=== PATIENT | female | born 1990 | race Caucasian/White ===

== ENCOUNTER 2016-05-01 17:17 | Inpatient (IN) | payer OTHER ==
[~2016-05-01] VITALS: Ht 160 cm; Wt 50.5 kg
[2016-05-01] MEDS ORDERED: ONDANSETRON 4 MG INJ IV STA ×2 (17:21→19:53)
[2016-05-01] MEDS ORDERED: morphine 4 MG/ML VIAL IV STA ×2 (17:21→19:53)
[2016-05-01] MEDS ORDERED: SOD CHLORIDE 0.9% 1,000 ML IV STA ×2 (17:21→19:53)
[2016-05-01 17:48] LABS: ADD UMIC YES; URINE BILIRUBIN (Dip) NEGATIVE (NEGATIVE); URINE BLOOD (Dip) TRACE (NEGATIVE); URINE COLOR LT. YELLOW (YELLOW); URINE GLUCOSE (Dip) NEGATIVE (NEGATIVE); URINE KETONES (Dip) NEGATIVE (NEGATIVE); URINE LEUKOCYTE ESTERASE (Dip) TRACE (NEGATIVE); URINE NITRITE (Dip) NEGATIVE (NEGATIVE); URINE TOTAL PROTEIN (Dip) NEGATIVE (NEGATIVE); URINE UROBILINOGEN (Dip) 0.2 E.U./dL (0.1-1.0)
[2016-05-01 18:02] LABS: BASOPHIL # 0.1 10^3/ul (0.0-0.1); BASOPHILS % 0.4 % (0.0-2.0); EOSINOPHILS % 0.4 % (0.0-7.0); HEMATOCRIT 37.9 % (37.0-47.0); HEMOGLOBIN 12.7 g/dl (12.0-16.0); LYMPHOCYTES % 24.2 % (15.0-51.0); MEAN CORPUSCULAR HEMOGLOBIN 31.4 pg (29.0-33.0); MEAN CORPUSCULAR HGB CONC 33.5 g/dl (32.0-37.0); MEAN PLATELET VOLUME 8.3 fl (7.4-10.4); MONOCYTE # 0.6 10^3/ul (0.3-0.9); MONOCYTES % 5.2 % (0.0-11.0); NEUTROPHIL # 8.6 10^3/ul (1.6-7.5); NEUTROPHILS % 69.8 % (39.0-77.0); PLATELET COUNT 328 10^3/UL (140-440); RED BLOOD COUNT 4.04 10^6/ul (4.20-5.40); RED CELL DISTRIBUTION WIDTH 13.9 % (11.5-14.5); UNCORRECTED WBC 12.4 10^3/ul (4.8-10.8); WHITE BLOOD COUNT 12.4 10^3/ul (4.8-10.8)
[2016-05-01 18:05] LABS: CONDITION 1
[2016-05-01 18:09] LABS: ALBUMIN 4.4 g/dl (3.3-4.9)
[2016-05-01 18:10] LABS: POTASSIUM 3.9 mmol/L (3.5-5.1)
[2016-05-01 18:11] LABS: CREATININE 0.75 mg/dl (0.44-1.00)
[2016-05-01 18:12] LABS: ALBUMIN/GLOBULIN RATIO 1.41; BILIRUBIN,INDIRECT 0.3 mg/dl (0-1.1); BILIRUBIN,TOTAL 0.3 mg/dl (0.2-1.3); CALCIUM 9.4 mg/dl (8.4-10.2); TOTAL PROTEIN 7.5 g/dl (6.1-8.1)
[2016-05-01 18:13] LABS: BACTERIA,URINE FEW; SQUAMOUS EPITHELIAL CELL,UR MANY; URINE RBCS 0-2 /HPF (0)
--- NOTE | 2016-05-01 18:43 | ERD ---
ER Documentation Chief Complaint Date/Time DATE: 05/01/16 TIME: 18:36 Chief Complaint back pain radiating to abd since 2300 yesterday, vomit x 1 HPI 26-year-old female who presents via EMS. The patient states that since yesterday she has had epigastric abdominal pain in back pain that is radiating. She describes a single episode of nonbloody nonbilious emesis. She describes a history of this in the past. She denies any shortness of breath, no pleuritic pain. She denies any recent alcohol abuse. No fevers or chills. She is unsure of the trigger. ROS All systems reviewed and are negative except as per history of present illness. Medications Home Meds No Active Prescriptions or Reported Meds Allergies Allergies: Coded Allergies: No Known Allergy (Unverified , 05/01/16) PMhx/Soc Medical and Surgical Hx: pt denies Medical Hx History of Surgery: Yes (c/s x 1) Anesthesia Reaction: No Hx Neurological Disorder: No Hx Respiratory Disorders: No Hx Cardiac Disorders: No Hx Psychiatric Problems: No Hx Miscellaneous Medical Probl: No Hx Alcohol Use: No Hx Substance Use: No Hx Tobacco Use: No Smoking Status: Never smoker Physical Exam Vitals Vital Signs Date Time Temp Pulse Resp B/P Pulse Ox O2 Delivery O2 Flow Rate FiO2 05/01/16 19:13 64 16 118/65 100 Room Air 05/01/16 17:25 98.9 88 22 110/66 100 Physical Exam General: Uncomfortable, tearful Head: Normocephalic, atraumatic. Eyes: Pupils equally reactive, EOM intact ENT: Moist mucous membranes Neck: Supple, no lymphadenopathy Respiratory: Lungs clear bilaterally, no distress Cardiovascular: RRR, no murmurs, rubs, or gallops Abdominal: Soft, tenderness to the epigastrium without rebound or guarding, negative Emanuel sign : Deferred MSK: No edema, no unilateral swelling, 5/5 strength Neurologic: Alert and oriented, moving all extremities, normal speech, no focal weakness, no cerebellar signs Skin: No rash Psych: Normal mood Result Diagram: 05/01/16 1750 05/01/16 1750 Results 24 hrs Laboratory Tests Test 05/01/16 17:30 05/01/16 17:50 Urine Bacteria FEW Urine Bilirubin NEGATIVE Urine Clarity SLIGHTLY CLOUDY Urine Color LT. YELLOW Urine Glucose NEGATIVE% Urine Hemoglobin TRACE Urine Ketones NEGATIVE Urine Leukocyte Esterase TRACE Urine Microscopic RBC 0-2/HPF Urine Microscopic WBC 0-2/HPF Urine Nitrite NEGATIVE Urine Specific [place] 1.015 Urine Squamous Epithelial Cells MANY Urine Total Protein NEGATIVE Urine Urobilinogen 0.2 E.U./dL Urine pH 7.0 Alanine Aminotransferase (ALT/SGPT) 47IU/L Albumin 4.4g/dl Albumin/Globulin Ratio 1.41 Alkaline Phosphatase 97IU/L Anion Gap 21 Aspartate Amino Transf (AST/SGOT) 108IU/L Basophils # 0.110^3/ul Basophils % 0.4% Blood Urea Nitrogen 12mg/dl Calcium Level 9.4mg/dl Carbon Dioxide Level 23mmol/L Chloride Level 104mmol/L Creatinine 0.75mg/dl Direct Bilirubin 0.00mg/dl Eosinophils # 0.010^3/ul Eosinophils % 0.4% Globulin 3.10g/dl Glucose Level 101mg/dl Hematocrit 37.9% Hemoglobin 12.7g/dl Indirect Bilirubin 0.3mg/dl Lipase 178U/L Lymphocytes # 3.010^3/ul Lymphocytes % 24.2% Mean Corpuscular Hemoglobin 31.4pg Mean Corpuscular Hemoglobin Concent 33.5g/dl Mean Corpuscular Volume 94.0fl Mean Platelet Volume 8.3fl Monocytes # 0.610^3/ul Monocytes % 5.2% Neutrophils # 8.610^3/ul Neutrophils % 69.8% Nucleated Red Blood Cells # 0.010^3/ul Nucleated Red Blood Cells % 0.0/100WBC Platelet Count 38146^3/UL Potassium Level 3.9mmol/L Red Blood Count 4.0410^6/ul Red Cell Distribution Width 13.9% Serum HCG, Qualitative NEGATIVE Sodium Level 144mmol/L Total Bilirubin 0.3mg/dl Total Protein 7.5g/dl White Blood Count 12.410^3/ul Current Medications Medications (Trade) Dose Ordered Sig/Kasie Route PRN Reason Start Time Stop Time Status Last Admin Dose Admin Sodium Chloride (NS) 1,000 ml @ 1,000 mls/hr Q1H STAT IV 05/01/16 17:21 05/01/16 18:20 DC 05/01/16 17:47 Morphine Sulfate (morphine) 4 mg ONCE STAT IV 05/01/16 17:21 05/01/16 17:23 DC 05/01/16 17:47 Ondansetron HCl 4 mg 4 mg ONCE STAT IV 05/01/16 17:21 05/01/16 17:23 DC 05/01/16 17:47 Sodium Chloride (NS) 1,000 ml @ 1,000 mls/hr Q1H STAT IV 05/01/16 19:53 05/01/16 20:52 Morphine Sulfate (morphine) 4 mg ONCE STAT IV 05/01/16 19:53 05/01/16 19:55 DC Ondansetron HCl 4 mg 4 mg ONCE STAT IV 05/01/16 19:53 05/01/16 19:55 DC Piperacillin Sod/ Tazobactam Sod (Zosyn 3.375gm/ 100 ml (Pmx)) 100 ml @ 200 mls/hr ONCE STAT IVPB 05/01/16 19:53 05/01/16 20:22 Procedures/MDM EKG, MONITORS, & DIAGNOSTIC IMAGING: Gallbladder ultrasound: Cholelithiasis without gallbladder wall thickening CT abdomen and pelvis: IMPRESSION: 1. Cholelithiasis with gallbladder wall thickening corresponds to the ultrasound abnormality and raises concern for cholecystitis. 2. Constipation pattern. 3. Unremarkable appendix. LAB INTERPRETATION: Leukocytosis, nonobstructive hepatobiliary pattern MEDICAL DECISION MAKING: The patient presents with epigastric abdominal pain radiating to the back. Given the patient's age very low clinical concern for dissection. Strong concern for possible hepatobiliary process versus acute pancreatitis versus peptic ulcer disease. Very low concern for perforation no indication for CT at this time. No cardio pulmonary process no shortness breath low concern for pulmonary embolism. The patient will benefit from laboratory testing all bladder ultrasound pain medication and reassurance, fluid resuscitation as well. ER COURSE: The patient continued to have pain despite pain medications. She had slight leukocytosis but a normal ultrasound other than cholelithiasis. However, given her persistent pain a CT was ordered. CT shows evidence of gallbladder wall thickening. Given her presentation of sudden pain with radiation to the back and scapula this is very consistent with possible early acute cholecystitis. Patient may benefit from a HIDA versus surgical consultation and cholecystectomy. I was able to speak to Dr. Langley who agreed and will take the patient for cholecystectomy. The patient is made n.p.o. she is given 2 L of saline, Zosyn. No evidence of sepsis. I kept the patient and/or family informed of laboratory and diagnostic imaging results throughout the emergency room course. DISPOSITION PLAN: Medical surgical admission CONSULTATION: Accepting care team and consultations: I discussed the current laboratory data, diagnostic imaging and emergency care provided. Admitting team: Dr. Matt Admitting team indication: Insurance directed, [place] Consulting services: General surgeon, Dr. Langley Departure Diagnosis: Primary Impression: Acute cholecystitis Additional Impressions: Leukocytosis Leukocytosis type: unspecified Qualified Code: D72.829 - Leukocytosis, unspecified type Epigastric abdominal pain Condition: Stable PRICE THOMAS MD May 01, 2016 18:43
--- NOTE | 2016-05-01 18:51 | RADRPT ---
PROCEDURE: US Abdomen. CLINICAL INDICATION: Abdominal pain. TECHNIQUE: Limited right upper quadrant Multiple real-time images were acquired utilizing a high r esolution transducer. COMPARISON: None FINDINGS: The liver demonstrates normal echogenicity. The liver is normal in size and no focal solid lesions are seen. The portal vein is patent with normal direction of flow. No intrahepatic biliary dilatat ion is seen. The liver measures 17.5 cm in length. Cholelithiasis. There is no pericholecystic fluid or gallbladder wall thickening. The common bile duct measures 5 mm in maximal dimension. The visualized portions of the pancreas are unremarkable. prominent pancreatic duct measuring 2 min utes in No free fluid is identified. The right kidney is normal in size, and demonstrates normal echogenicity and cortical thickness. T he right kidney measures 9.9 x 4 x 5 cm. . There is no evidence of hydronephrosis or nephrolithiasi s. IMPRESSION: Cholelithiasis. No wall thickening or pericholecystic fluid. No other acute intra-abdominal abnorm ality. RPTAT:AAJJ Deysi Bradshaw Physician Date Time Electronically viewed and signed by Physician Ki on 05/01/2016 18:50 AUSTEN/
--- NOTE | 2016-05-01 19:38 | RADRPT ---
PROCEDURE: CT abdomen and pelvis without contrast. CLINICAL INDICATION: Abdominal pain TECHNIQUE: CT scan of the abdomen and pelvis without contrast was performed. Sagittal and coronal reformatted images were obtained from the axial source images. CTDI = 4.43 mGy; DLP = 247.53 mGy-cm COMPARISON: Gallbladder ultrasound 05/01/2016 FINDINGS: Visualized lower thorax: The lung bases are clear. There is no evidence for pleural effusion. Liver, gallbladder, pancreas and spleen: The liver is normal and size, contour and attenuation. Th ere is no evidence for a liver mass or ductal dilatation. Calcified gallstones correspond with the ultrasound abnormality and there is suggestion of gallbladder wall thickening of approximately 6 mm without pericholecystic fluid. No common bile duct abnormality is demonstrated. The pancreas is un remarkable. The spleen is normal in size. Adrenal glands and genitourinary system: The adrenal glands are normal bilaterally. The kidneys are normal and size, contour and attenuation with no evidence for masses, calculi or hydronephrosis. T he ureters are unremarkable. No urinary bladder abnormality is demonstrated. There is and adnexa a re unremarkable. There is no evidence of free fluid in the cul-de-sac. Gastrointestinal system: The stomach is normal in caliber with no abnormality of significance. The small bowel is normal in caliber with no ileus, obstruction or wall thickening. The appendix and s urrounding fat are within the limits of normal. The colon shows no evidence for wall thickening or acute abnormality. Moderate amount of fecal debris is concerning for constipation. Peritoneum, retroperitoneum, lymph nodes and vessels: The abdominal aorta is normal in caliber. No pneumoperitoneum is present. The inferior vena cava is unremarkable. There is no evidence for mckenzie opathy or mass. There is no ascites. Osseous structures and musculoskeletal findings: There is no fracture, lytic or blastic lesion. No muscular abnormality or soft tissue pathology is present. RPTAT:HJJR IMPRESSION: 1. Cholelithiasis with gallbladder wall thickening corresponds to the ultrasound abnormality and ra ises concern for cholecystitis. 2. Constipation pattern. 3. Unremarkable appendix. Physician Darlyn Date Time Electronically viewed and signed by Physician Darlyn on 05/01/2016 19:38 MARYANN
[2016-05-01] MEDS ORDERED: PIPER-TAZO 3.375 GM IV (PMX) 100 ML IVPB STA (19:53)
[2016-05-01] MEDS ORDERED: ONDANSETRON 4 MG INJ IV PRN (20:30)
[2016-05-01] MEDS ORDERED: ACETAMINOPHEN 325 MG TAB PO PRN (20:30)
[2016-05-01 23:48] VITALS: BP 110/60; RESP 20
[2016-05-02] VITALS (22 sets, daily range): BP systolic 100–135; BP diastolic 53–69; PULSE 48–64; RESP 12–27; Ht 160 cm; Wt 50.5 kg
--- NOTE | 2016-05-02 00:23 | QN ---
Documentation Comment H&P dict a/p 1. gi: ruq pain radiating to back with gall stones on us and possible wall thickening on ct, plan for lap wilson 2. pre-op: patient is low risk patient for low-intermediate risk procedure, no further risk stratification or modificaion required "patient cleared for surgery" YULISA HUITRON MD May 02, 2016 00:23
[2016-05-02] MEDS ORDERED: VITAMIN A & D 5 GM OINT PACKET TOP ONE (01:03)
[2016-05-02] MEDS: morphine 4 MG/ML VIAL IV PRN ×4 (01:12→22:40)
[2016-05-02] MEDS: SOD CHLORIDE 0.9% 1,000 ML IV SCH ×3 (01:12→18:06)
--- NOTE | 2016-05-02 01:18 | HP ---
DATE OF ADMISSION: 05/01/2016 CHIEF COMPLAINT: Abdominal pain. HISTORY OF PRESENT ILLNESS: The patient presents to the emergency room at [facility] with abdominal pain, which she states became severe today around 2:00 in the afternoon. She states that she has been dealing with abdominal pain intermittently for the last 3 weeks or so, but never as bad as this. She localizes this pain in the epigastric and right upper quadrant regions. States it ra diates around to the back and that her back pain is much more persistent that is her abdominal pain. There is some nausea. She vomited on 1 occasion. She does state that she had 1 episode of chills . No fevers. PAST MEDICAL HISTORY: Nil. MEDICATIONS: As an outpatient nil. ALLERGIES: NIL. SOCIAL HISTORY: Lives in [place], but she just moved here from [place]. She lives with her [facility]. Not currently working. Denies tobacco, alcohol, or illicit drug use. FAMILY HISTORY: Noncontributory. REVIEW OF SYSTEMS: Five systems reviewed and found not to be revealing. PHYSICAL EXAMINATION: VITAL SIGNS: Blood pressure is 98/59, pulse rate 60, respirations 18, temperature is 98.9, saturati ng 100% on room air. GENERAL: Pleasant young woman in no acute distress, alert and oriented x3. HEENT: Normocephalic, atraumatic without evident scleral icterus, perioral cyanosis. Mucous membra eddie are moist. NECK: Soft and supple without masses. No evidence of jugular venous distention or carotid bruits. CHEST: Clear to auscultation and percussion bilaterally. HEART: Regular rate and rhythm. S1, S2, no added sounds. ABDOMEN: Soft, nontender, nondistended without palpable hepatosplenomegaly. EXTREMITIES: Without clubbing, cyanosis, or edema. SKIN: Without rashes. NEUROLOGIC: Grossly intact. LABORATORY STUDIES: Reveal a hemoglobin of 12.7 g/dL, white count 12,400; platelets of 328,000. So dium 144, potassium 3.9, chloride 104, bicarbonate 23, BUN 12, creatinine 0.75, glucose 101. Liver function tests are within normal limits. HCG is negative. UA is negative for signs of infection. Ultrasound of the abdomen is performed and reveals gallstones with normal common bile duct and no ev idence of pericholecystic fluid or wall thickening; however, CT scan is performed and does show some wall thickening raising the possibility of cholecystitis. ASSESSMENT AND PLAN: 1. Gastrointestinal: The patient with right upper quadrant pain consistent with gallstone disease. Case as discussed in the emergency room with Dr. Langley, who recommends surgical treatment of same . 2. Preoperative evaluation. The patient is a low risk patient for a low to intermediate risk proce dure and does not require further risk stratification or modification and is recommended to proceed to the operating room as anticipated. 3. "The patient is cleared for surgery." 4. Prophylaxis with TEDs hose. Dictated By: YULISA HUITRON MD RER/NTS Conf#: [id number] DID#: [id number]
[2016-05-02] MEDS: PIPER-TAZO 3.375 GM IV (PMX) 100 ML IVPB SCH ×3 (05:34→22:22)
[2016-05-02 09:38] LABS: INR 1.07; PROTIME 13.9 Sec (12.2-14.2); PT RATIO 1.1
[2016-05-02 09:39] LABS: PARTIAL THROMBOPLASTIN TIME 28.9 Sec (25.0-35.0)
--- NOTE | 2016-05-02 09:39 | RADRPT ---
PROCEDURE: XR CHEST AP PORTABLE CLINICAL INDICATION: PRE OP TESTING TECHNIQUE: Single frontal view of the chest COMPARISON: None. FINDINGS: The cardiomediastinal silhouette and pulmonary vasculature are normal. The lungs are clear. No consolidation, effusion, or pneumothorax. The osseous structures are unremarkable. IMPRESSION: No acute cardiopulmonary process. RPTAT:PP .Jose Templeton MD, MD Date Time Electronically viewed and signed by .Jose Templeton MD, MD on 05/02/2016 09:38 .V/
--- NOTE | 2016-05-02 11:30 | PN ---
Date/Time of Note Date/Time of Note DATE: 05/02/16 TIME: 11:16 Assessment/Plan VTE Prophylaxis VTE Prophylaxis Intervention: SCD's Lines/Catheters IV Catheter Type (from Nrsg): Peripheral IV Urinary Cath still in place: No Assessment/Plan Assessment/Plan 26 yo female with: 1. Acute cholecystitis Appreciate Dr Langley's eval, plan for Lap Wilson today CXR, EKG and coags wnl Prophylaxis: SCDs for dvt ppx and pepcid for GI ppx Disposition: Lap Cholecystectomy today Subjective 24 Hr Interval Summary Free Text/Dictation Patient doing Ok Lap wilson today Exam/Review of Systems Vital Signs Vitals Vital Signs Date Time Temp Pulse Resp B/P Pulse Ox O2 Delivery O2 Flow Rate FiO2 05/02/16 08:03 97.3 58 14 100/55 98 05/01/16 23:25 Room Air Intake and Output 05/01/16 05/01/16 05/02/16 15:00 23:00 07:00 Intake Total 2100 ml 500 ml Balance 2100 ml 500 ml Exam Constitutional: alert, oriented, well developed Respiratory: clear to auscultation, normal air movement Cardiovascular: nl pulses, regular rate and rhythm Gastrointestinal: soft, tender (RUQ) Musculoskeletal: nl extremities to inspection Extremities: normal pulses, other (no edema, clubbing or cyanosis) Neurological: PHYSICIAN COMPENSATION ANALYST II-XII intact, nl mental status, nl speech, nl strength Results Result Diagram: 05/01/16 1750 05/01/16 1750 Results 24 hrs Laboratory Tests Test 05/01/16 17:30 05/01/16 17:50 05/02/16 09:15 Urine Bacteria FEW Urine Bilirubin NEGATIVE Urine Clarity SLIGHTLY CLOUDY Urine Color LT. YELLOW Urine Glucose NEGATIVE Urine Hemoglobin TRACE Urine Ketones NEGATIVE Urine Leukocyte Esterase TRACE H Urine Microscopic RBC 0-2 Urine Microscopic WBC 0-2 Urine Nitrite NEGATIVE Urine Specific [place] 1.015 Urine Squamous Epithelial Cells MANY Urine Total Protein NEGATIVE Urine Urobilinogen 0.2 E.U./dL Urine pH 7.0 Alanine Aminotransferase (ALT/SGPT) 47 Albumin 4.4 Albumin/Globulin Ratio 1.41 Alkaline Phosphatase 97 Anion Gap 21 H Aspartate Amino Transf (AST/SGOT) 108 H Basophils # 0.1 Basophils % 0.4 Blood Urea Nitrogen 12 Calcium Level 9.4 Carbon Dioxide Level 23 Chloride Level 104 Creatinine 0.75 Direct Bilirubin 0.00 Eosinophils # 0.0 Eosinophils % 0.4 Globulin 3.10 Glucose Level 101 Hematocrit 37.9 Hemoglobin 12.7 Indirect Bilirubin 0.3 Lipase 178 Lymphocytes # 3.0 H Lymphocytes % 24.2 Mean Corpuscular Hemoglobin 31.4 Mean Corpuscular Hemoglobin Concent 33.5 Mean Corpuscular Volume 94.0 Mean Platelet Volume 8.3 Monocytes # 0.6 Monocytes % 5.2 Neutrophils # 8.6 H Neutrophils % 69.8 Nucleated Red Blood Cells # 0.0 Nucleated Red Blood Cells % 0.0 Platelet Count 328 Potassium Level 3.9 Red Blood Count 4.04 L Red Cell Distribution Width 13.9 Serum HCG, Qualitative NEGATIVE Sodium Level 144 Total Bilirubin 0.3 Total Protein 7.5 White Blood Count 12.4 H Activated Partial Thromboplast Time 28.9 INR International Normalized Ratio 1.07 Prothrombin Time 13.9 Prothrombin Time Ratio 1.1 Medications Medications Current Medications Sodium Chloride (NS) 1,000 ml @ 100 mls/hr Q10H IV Last administered on 10:18; Admin Dose 100 MLS/HR; Start 05/02/16 at 00:00 Morphine Sulfate (morphine) 4 mg Q3H PRN IV pain Last administered on 10:20; Admin Dose 4 MG; Start 05/02/16 at 00:00 Ondansetron HCl 4 mg 4 mg Q4H PRN IV nausea Last administered on 05/02/16 01: 12; Admin Dose 4 MG; Start 05/02/16 at 00:00 Piperacillin Sod/ Tazobactam Sod (Zosyn 3.375gm/ 100 ml (Pmx)) 100 ml @ 200 mls /hr Q8H IVPB Last administered on 05/02/16 05:34; Admin Dose 200 MLS/HR; Start 05/02/16 at 06:00 MICHAEL MARSHALL May 02, 2016 11:28
--- NOTE | 2016-05-02 11:32 | CONS ---
DATE OF ADMISSION: 05/01/2016 DATE OF CONSULTATION: TYPE OF CONSULTATION: Surgical REASON FOR CONSULTATION: Acute cholecystitis. HISTORY OF PRESENT ILLNESS: The patient is an otherwise healthy 26-year-old female, who presents to the emergency room with a 1-day history of right upper quadrant abdominal pain radiating to the jen k. Abdominal ultrasound showed multiple gallstones with gallbladder wall thickening compatible with acute cholecystitis. She had an elevated white blood cell count and her LFTs were normal. She is admitted with a diagnosis of acute cholecystitis and surgical consultation was requested in that reg xochitl. She has had no fevers, chills or jaundice. PAST MEDICAL HISTORY: No previous hospitalizations or illnesses. REVIEW OF SYSTEMS: HEENT: Unremarkable. PULMONARY: No history of pneumonia or shortness of breath or asthma. CARDIAC: No history of chest pain or arrhythmia or MO. ABDOMEN: As in the HPI. EXTREMITIES: Unremarkable. OUTPATIENT MEDICATIONS: None. ALLERGIES: NONE. PHYSICAL EXAMINATION: GENERAL: The patient is a fit-appearing 26-year-old female who is awake and alert, in no acute dist ress. She speaks only Portuguese. HEENT: Within normal limits. Sclerae nonicteric. LUNGS: Clear. HEART: Regular rhythm. ABDOMEN: Tender in the right upper quadrant with a positive Emanuel sign. EXTREMITIES: Unremarkable. LABORATORY DATA: Hematocrit is 37.9 with a white count of 12,400. test negative. LFTs u nremarkable with normal BUN, glucose and electrolytes. IMPRESSION: This patient has acute cholecystitis and will most certainly be benefited by laparoscop ic cholecystectomy. I have discussed the procedure, outcomes, expectations, alternatives and risks in detail with the patient, who has an excellent understanding of the nature of her situation and ag cristy to the proposed plan of therapy as outlined. Dictated By: EUSEBIO CAN/RANDY Conf#: [id number] DID#: [id number]
[2016-05-02] MEDS ORDERED: DEXAMETHASONE 4 MG/ML 1 ML INJ ONE (13:30)
[2016-05-02] MEDS ORDERED: PROPOFOL 20 ML ONE (13:30)
[2016-05-02] MEDS ORDERED: NEOSTIGMINE 3 MG/3 ML SYRINGE ONE (13:30)
[2016-05-02] MEDS ORDERED: ROCURONIUM 50 MG INJ ONE (13:30)
[2016-05-02] MEDS ORDERED: MIDAZOLAM 1 MG/ML 2 ML INJ ONE (13:30)
[2016-05-02] MEDS ORDERED: CEFAZOLIN 1 GM INJ ONE (13:30)
[2016-05-02] MEDS ORDERED: LIDOCAINE 100 MG SYRINGE ONE (13:30)
[2016-05-02] MEDS ORDERED: ONDANSETRON 4 MG INJ ONE (13:30)
[2016-05-02] MEDS ORDERED: GLYCOPYRROLATE 1 MG INJ ONE (13:30)
--- NOTE | 2016-05-02 13:36 | RADRPT ---
Vent Rate: 58 bpm RR Interval: 0 msec TN Interval: 142 msec QRS Duration: 82 msec QT Interval: 410 msec QTC Interval: 402 msec P-R-T [place]: 77 - 86 - 74 degrees Sinus bradycardia Otherwise normal ECG Electronically Signed By: Seb Pineda [id number]
[2016-05-02] MEDS ORDERED: BUPIVACAINE 0.25%/EPI (SDV) 30 ML INJ ONE (13:48)
[2016-05-02] MEDS ORDERED: BUPIVACAINE 0.25%/EPI (SDV) 30 ML INJ INJ ONE (14:10)
[2016-05-02] MEDS ORDERED: EPHEDrine SULFATE 50 MG/5 ML SYG IV PRN (14:30)
[2016-05-02] MEDS ORDERED: MEPERIDINE 25 MG INJ IV PRN (14:30)
[2016-05-02] MEDS ORDERED: MIDAZOLAM 1 MG/ML 2 ML INJ IV PRN (14:30)
[2016-05-02] MEDS ORDERED: hydrALAzine 20 MG INJ IV PRN (14:30)
[2016-05-02] MEDS ORDERED: HYDROmorphONE (0.2 MG/ML) 10ML SYG IV PRN ×2 (14:30)
[2016-05-02] MEDS ORDERED: ONDANSETRON 4 MG INJ IV PRN ×2 (14:30)
[2016-05-02] MEDS ORDERED: TRIMETHOBENZAMIDE 100 MG/ML VIAL IM PRN (14:30)
[2016-05-02] MEDS ORDERED: FENTAnyl 50 MCG/ML VIAL IV PRN ×3 (14:30)
[2016-05-02] MEDS ORDERED: LABETALOL HCL 20MG INJ IV PRN (14:30)
[2016-05-02] MEDS ORDERED: DIPHENHYDRAMINE 50 MG INJ IV PRN (14:30)
[2016-05-02] MEDS ORDERED: OXYCODONE/ACETAMINOPHEN (5/325) TAB PO PRN (15:30)
[2016-05-02] MEDS: HYDROmorphONE (0.2 MG/ML) 10ML SYG IV PRN ×3 (15:30→15:44)
[2016-05-02] MEDS ORDERED: morphine 2 MG INJ IV PRN (15:30)
--- NOTE | 2016-05-02 15:48 | OPR ---
DATE OF OPERATION: PREOPERATIVE DIAGNOSIS: Acute cholecystitis. POSTOPERATIVE DIAGNOSIS: Acute cholecystitis. PROCEDURE: Laparoscopic cholecystectomy. SURGEON: Eusebio Langley MD ANESTHESIA: General. ANESTHESIOLOGIST: Walker Presaud MD OPERATIVE REPORT: After satisfactory general anesthesia was achieved, the abdomen was insufflated w ith carbon dioxide through an umbilical Veress needle to 15 mmHg pressure. The Veress needle was re moved and the umbilical incision extended to 5 mm, through which a 5 mm trocar was placed. A 5mm 0- degree lens was placed. Laparoscopy showed an acutely inflamed, edematous gallbladder. Under direc t visualization, a 12 mm epigastric trocar was placed as well as two 5 mm right lateral abdominal tr ocars. The dome of the gallbladder was grasped and retracted superiorly. Ralph's pouch was retr acted inferiorly. The hepatoduodenal ligament was carefully dissected. The cystic duct was then tr iply hemoclipped and divided high at the junction of the gallbladder and the cystic duct. The cysti c artery was identified immediately posteriorly. This was triply hemoclipped and divided. Peritone al attachments to the gallbladder were divided over clips. The gallbladder was then dissected from below using electrocautery dissection and placed fully intact into an EndoCatch, removed via the epi gastric route. The epigastric incision had to be extended to 4 cm to facilitate removal of the gall bladder with 2 very large stones. Hemostasis of the liver bed was total and irrigant returned clear . The abdomen was then desufflated and the trocars were removed. The fascia of the epigastrium was closed with 3 sutures of #1 Vicryl. The skin punctures were infiltrated with 30 mL of 0.25% Marcai ne with epinephrine and closed with mario. Operative blood loss approximately 30 mL. Sponge, nee dle and instrument counts were reported as correct x2. The patient tolerated the procedure well and without incident or complication. Dictated By: EUSEBIO CAN/RANDY Conf#: [id number] DID#: [id number]
[2016-05-02] MEDS: ONDANSETRON 4 MG INJ IV PRN (20:00)
[2016-05-02] MEDS: OXYCODONE/ACETAMINOPHEN (5/325) TAB PO PRN (20:01)
[2016-05-02] MEDS: FAMOTIDINE 20 MG INJ IV SCH (21:31)
[2016-05-03 00:45] VITALS: BP 107/61; RESP 20
[2016-05-03] MEDS: OXYCODONE/ACETAMINOPHEN (5/325) TAB PO PRN ×4 (01:44→20:38)
[2016-05-03 05:09] LABS: HEMATOCRIT 32.9 % (37.0-47.0); HEMOGLOBIN 11.2 g/dl (12.0-16.0); LYMPHOCYTES # 1.4 10^3/ul (0.8-2.9); LYMPHOCYTES % 8.6 % (15.0-51.0); MEAN CORPUSCULAR HEMOGLOBIN 32.1 pg (29.0-33.0); MEAN CORPUSCULAR HGB CONC 34.2 g/dl (32.0-37.0); MEAN CORPUSCULAR VOLUME 93.9 fl (82.0-101.0); MEAN PLATELET VOLUME 8.7 fl (7.4-10.4); MONOCYTE # 0.8 10^3/ul (0.3-0.9); MONOCYTES % 5.1 % (0.0-11.0); NEUTROPHIL # 13.7 10^3/ul (1.6-7.5); NEUTROPHILS % 86.3 % (39.0-77.0); PLATELET COUNT 279 10^3/UL (140-440); RED CELL DISTRIBUTION WIDTH 13.8 % (11.5-14.5); UNCORRECTED WBC 15.9 10^3/ul (4.8-10.8); WHITE BLOOD COUNT 15.9 10^3/ul (4.8-10.8)
[2016-05-03 05:28] LABS: ALBUMIN 3.2 g/dl (3.3-4.9); POTASSIUM 4.5 mmol/L (3.5-5.1)
[2016-05-03 05:30] LABS: CREATININE 0.65 mg/dl (0.44-1.00)
[2016-05-03 05:31] LABS: ALBUMIN/GLOBULIN RATIO 1.18; BILIRUBIN,INDIRECT 0.2 mg/dl (0-1.1); BILIRUBIN,TOTAL 0.2 mg/dl (0.2-1.3); TOTAL PROTEIN 5.9 g/dl (6.1-8.1)
[2016-05-03] MEDS: PIPER-TAZO 3.375 GM IV (PMX) 100 ML IVPB SCH ×3 (05:31→21:58)
[2016-05-03] MEDS: SOD CHLORIDE 0.9% 1,000 ML IV SCH ×2 (05:31→17:15)
[2016-05-03 05:32] LABS: CALCIUM 8.6 mg/dl (8.4-10.2)
[2016-05-03 05:35] LABS: CONDITION 1
[2016-05-03 07:21] VITALS: BP 104/55; RESP 16
[2016-05-03] MEDS: FAMOTIDINE 20 MG INJ IV SCH ×2 (08:15→20:08)
[2016-05-03] MEDS: ONDANSETRON 4 MG INJ IV PRN ×2 (11:27→19:33)
--- NOTE | 2016-05-03 11:35 | PN ---
Date/Time of Note Date/Time of Note DATE: 05/03/16 TIME: 11:32 Assessment/Plan VTE Prophylaxis VTE Prophylaxis Intervention: ambulation, SCD's Lines/Catheters IV Catheter Type (from Nrs): Saline Lock Urinary Cath still in place: No Assessment/Plan Assessment/Plan 26 year old with acute cholecystitis: POD #1 doing well, but with some nausea and mild elevation of the WBC to about 15. Will continue antibiotics and d/c in AM if she continues to improve. I spoke with Dr. Langley and she is safe to go home from a surgical standpoint. Subjective 24 Hr Interval Summary Free Text/Dictation Feeling nauseated and having some dry heaving. Exam/Review of Systems Vital Signs Vitals Vital Signs Date Time Temp Pulse Resp B/P Pulse Ox O2 Delivery O2 Flow Rate FiO2 05/03/16 07:21 98.2 66 16 104/55 95 05/02/16 23:34 Nasal Cannula 3.0 Intake and Output 05/02/16 05/02/16 05/03/16 15:00 23:00 07:00 Intake Total 600 ml 1500 ml 200 ml Output Total 10 ml 800 ml Balance 600 ml 1490 ml -600 ml Exam Constitutional: alert, oriented Head: normocephalic Eyes: nl conjunctiva ENMT: nl external ears & nose Neck: supple Respiratory: clear to auscultation Cardiovascular: regular rate and rhythm Gastrointestinal: other (mild TTP in left upper quadrant over incision site), soft Results Result Diagram: 05/03/16 0435 05/03/16 0435 Results 24 hrs Laboratory Tests Test 05/03/16 04:35 Alanine Aminotransferase (ALT/SGPT) 70 H Albumin 3.2 #L Albumin/Globulin Ratio 1.18 Alkaline Phosphatase 68 Anion Gap 15 Aspartate Amino Transf (AST/SGOT) 54 H Basophils # 0.0 Basophils % 0.0 Blood Urea Nitrogen 7 Calcium Level 8.6 Carbon Dioxide Level 25 Chloride Level 104 Creatinine 0.65 Direct Bilirubin 0.00 Eosinophils # 0.0 Eosinophils % 0.0 Globulin 2.70 Glucose Level 114 Hematocrit 32.9 L Hemoglobin 11.2 L Indirect Bilirubin 0.2 Lymphocytes # 1.4 Lymphocytes % 8.6 L Mean Corpuscular Hemoglobin 32.1 Mean Corpuscular Hemoglobin Concent 34.2 Mean Corpuscular Volume 93.9 Mean Platelet Volume 8.7 Monocytes # 0.8 Monocytes % 5.1 Neutrophils # 13.7 H Neutrophils % 86.3 H Nucleated Red Blood Cells # 0.0 Nucleated Red Blood Cells % 0.0 Platelet Count 279 Potassium Level 4.5 Red Blood Count 3.50 L Red Cell Distribution Width 13.8 Sodium Level 139 Total Bilirubin 0.2 Total Protein 5.9 #L White Blood Count 15.9 #H Medications Medications Current Medications Sodium Chloride (NS) 1,000 ml @ 100 mls/hr Q10H IV Last administered on 05:31; Admin Dose 100 MLS/HR; Start 05/02/16 at 00:00 Morphine Sulfate 4 mg 4 mg Q3H PRN IV pain Last administered on 05/02/16 22:40 ; Admin Dose 4 MG; Start 05/02/16 at 00:00 Piperacillin Sod/ Tazobactam Sod (Zosyn 3.375gm/ 100 ml (Pmx)) 100 ml @ 200 mls /hr Q8H IVPB Last administered on 05/03/16 05:31; Admin Dose 200 MLS/HR; Start 05/02/16 at 06:00 Famotidine (Pepcid Iv) 20 mg BID IV Last administered on 05/03/16 08:15; Admin Dose 20 MG; Start 05/02/16 at 21:00 Oxycodone/ Acetaminophen (Percocet (5/ 325)) 1 tab Q4H PRN PO MILD PAIN (1-3); Start 05/02/16 at 15:30 Oxycodone/ Acetaminophen (Percocet (5/ 325)) 2 tab Q4H PRN PO MODERATE PAIN (4- 6) Last administered on 05/03/16 08:15; Admin Dose 2 TAB; Start 05/02/16 at 15: 30 Morphine Sulfate (morphine) 2 mg ONCE PRN IV SEVERE PAIN LEVEL 7-10 Last administered on 05/02/16 18:29; Admin Dose 2 MG; Start 05/02/16 at 15:30 Ondansetron HCl (Zofran Inj) 4 mg Q6H PRN IV NAUSEA Last administered on 11:27; Admin Dose 4 MG; Start 05/02/16 at 15:30 ANTONELLA VELASQUEZ MD May 03, 2016 11:35
--- NOTE | 2016-05-03 12:00 | PN ---
DATE: SURGERY PROGRESS NOTE Postoperative day #1. The patient is afebrile throughout and is markedly symptomatically improved. Her abdominal examination is benign. She does feel slightly nauseated. LABORATORY DATA: Hematocrit 32.9, with a white count of 15,900. LFTs are normal. IMPRESSION: Excellent response to surgery. The patient is slightly nauseated. PLAN: Continue medical management. The patient should be cleared for discharge tomorrow morning. Dictated By: EUSEBIO CAN/RANDY Conf#: [id number] DID#: [id number]
[2016-05-03 20:31] VITALS: BP 114/57; RESP 20
[2016-05-04] MEDS: SOD CHLORIDE 0.9% 1,000 ML IV SCH ×2 (02:00→11:10)
[2016-05-04 05:17] LABS: ALBUMIN 2.8 g/dl (3.3-4.9)
[2016-05-04 05:18] LABS: POTASSIUM 3.7 mmol/L (3.5-5.1)
[2016-05-04 05:20] LABS: ALBUMIN/GLOBULIN RATIO 1.27; CREATININE 0.72 mg/dl (0.44-1.00)
[2016-05-04 05:21] LABS: CALCIUM 8.2 mg/dl (8.4-10.2)
[2016-05-04 05:31] LABS: BASOPHILS % 0.4 % (0.0-2.0); EOSINOPHILS # 0.1 10^3/ul (0.0-0.5); EOSINOPHILS % 0.9 % (0.0-7.0); HEMATOCRIT 29.4 % (37.0-47.0); HEMOGLOBIN 9.9 g/dl (12.0-16.0); LYMPHOCYTES # 3.4 10^3/ul (0.8-2.9); MEAN CORPUSCULAR HEMOGLOBIN 31.9 pg (29.0-33.0); MEAN CORPUSCULAR HGB CONC 33.9 g/dl (32.0-37.0); MEAN CORPUSCULAR VOLUME 94.1 fl (82.0-101.0); MEAN PLATELET VOLUME 8.8 fl (7.4-10.4); MONOCYTE # 0.6 10^3/ul (0.3-0.9); MONOCYTES % 7.3 % (0.0-11.0); NEUTROPHIL # 4.7 10^3/ul (1.6-7.5); NEUTROPHILS % 53.4 % (39.0-77.0); PLATELET COUNT 252 10^3/UL (140-440); RED BLOOD COUNT 3.12 10^6/ul (4.20-5.40); RED CELL DISTRIBUTION WIDTH 14.5 % (11.5-14.5); UNCORRECTED WBC 8.8 10^3/ul (4.8-10.8); WHITE BLOOD COUNT 8.8 10^3/ul (4.8-10.8)
[2016-05-04] MEDS: PIPER-TAZO 3.375 GM IV (PMX) 100 ML IVPB SCH ×2 (05:41→13:53)
[2016-05-04 06:10] LABS: CONDITION 1
[2016-05-04] MEDS: ONDANSETRON 4 MG INJ IV PRN (06:35)
[2016-05-04] MEDS: OXYCODONE/ACETAMINOPHEN (5/325) TAB PO PRN (06:45)
[2016-05-04] MEDS: FAMOTIDINE 20 MG INJ IV SCH (08:15)
[2016-05-04 08:17] VITALS: BP 106/59; RESP 16
[2016-05-04 08:19] VITALS: BP 108/57; PULSE 62; RESP 16
--- NOTE | 2016-05-04 13:48 | PN ---
DATE: SUBJECTIVE: Postoperative laparoscopic cholecystectomy, postoperative day #2. Patient is markedly symptomatically improved. She has been afebrile throughout, and her white count has come down to 88 00. Her abdominal examination is benign, and her LFTs are normal. PLAN: The patient can be discharged. Office followup 1 week for staple removal. Dictated By: EUSEBIO CAN/RANDY Conf#: [id number] DID#: [id number]
--- NOTE | 2016-05-04 17:03 | PDOCDIS ---
Discharge Instructions DIAGNOSIS Discharge Diagnosis: acute cholecystitis CONDITION Patient Condition: Good HOME CARE INSTRUCTIONS: Diet Instructions: Low Fat /Cholesterol ACTIVITY: Activity Restrictions: Slowly Increase Activity Rest between Activity Avoid heavy lifting Avoid Heavy Housework Bathing Restrictions: ShowerActivity Restrictions Comment: no lifting greater than 10 pounds FOLLOW UP/APPOINTMENTS Appointments Dr. Langley in 1 week for staple removal PCP appointment in 1-2 weeks SCHOOL/WORK RELEASE May return to School/Work with: With Restrictions School/Work Release Comment: Must visit Dr. Langley first for clearance to return to work. ANTONELLA VELASQUEZ MD May 04, 2016 17:03
[2016-05-04] MEDS ORDERED: Oxycodone/Acetamin (5/325) PO (17:04)
[2016-05-04] MEDS ORDERED: CEPH-442 PO (17:04)
--- NOTE | 2016-05-04 20:10 | DS ---
DATE OF ADMISSION: 05/03/2016 DATE OF DISCHARGE: 05/04/2016 FINAL DIAGNOSES: Acute cholecystitis: Resolved, status post laparoscopic cholecystectomy. HOSPITAL COURSE: The patient is a very pleasant 26-year-old female with no significant past medical history who presented with abdominal pain, which started approximately 2 in the afternoon on the da y of admission. She was admitted by my associate, Dr. Yulisa Huitron, and was noted to have inter mittent abdominal pain approximately 3 weeks or so, but it intensified and she presented to [facility] department with the aforementioned symptoms. Her pain localized in the epigastric and right u pper quadrant region. As stated above, she presented with aforementioned symptoms and her workup re vealed acute cholecystitis. Dr. Mateus Langley was consulted on the case. The patient underwent lap aroscopic cholecystectomy on 05/02/2016. The patient fared well and, on postoperative day 1, she gerber d some abdominal pain around the incision site and some bloating. She was continued on antibiotics and, on postop day 2, she was feeling very well. She had a bowel movement and her pain was controll ed on oral Percocet. I had a discussion with Dr. Langley who agreed that she is safe to go home. Th is was discussed in detail with the patient at the bedside. She is to return home to her sister and children. Her boyfriend was also present at the bedside. CONDITION ON DISCHARGE: Stable. DISPOSITION: Discharged to home. MEDICATIONS: 1. Pinson 5/325 one p.o. every 6 hours p.r.n. pain. 2. Keflex 250 mg 1 p.o. q.i.d. for 7 days. FOLLOWUP VISIT: The patient is to follow up with Dr. Langley in 1 week for staple removal. The minh ent is also to follow up with her primary care physician in 1 week as well. Dictated By: ANTONELLA GAN/RANDY Conf#: [id number] DID#: [id number] CC: YULISA HUITRON MD;*EndCC*
== END 2016-05-04 18:00 | disposition home or self-care (01) | DRG 419 ==
LOC: E/R 17:17 → UNDOADMOB 20:09 → MS1 20:09 → INTOOBSV 20:09 → MS1 20:10 → E/R 23:37 → OBSVTOIN 05-03 16:59
PROVIDERS: ADMIT Legal Medicine; ATTEND Legal Medicine
PROC: 0FT44ZZ Resection of Gallbladder, Percutaneous Endoscopic Approach (ICD-10-PCS; principal; 2016-05-02 13:30)
DX: K81.0 Acute cholecystitis (principal)
CPT/HCPCS: 36415; 71010; 74176; 76705; 80053; 81001; 81003; 83690; 84703; 85025; 85610; 85730; 88304; 93005; 96374; 96375; 96376; G0378; J0690; J1100; J1170; J2001; J2250; J2270; J2405; J2543; J2710; J3010; J7030